=== PATIENT | male | born 1970 | race Caucasian/White ===

== ENCOUNTER 2018-07-04 23:33 | Emergency (ER) | payer SELFPAY ==
[2018-07-05] MEDS ORDERED: Aspirin Chewable 81 MG TAB ONE (00:16)
[2018-07-05 00:30] LABS: #Basophils 0.1 thou/uL (0.0-0.2); #Eosinphils 0.1 thou/uL (0.0-0.7); #Lymphocytes 2.2 thou/uL (1.20-3.40); #Monocytes 0.7 thou/uL (0.11-0.59); #Neutrophils 6.7 thou/uL (1.40-6.50); %Basophils 0.9 % (0.0-1.0); %Eosinophils 1.2 % (0.0-10.0); %Monocytes 6.7 % (0.0-10.0); %Neutrophils 68.3 % (42.0-75.0); Hemoglobin 17.9 g/dL (14.0-18.0); Mean Corpuscular HGB CONC 33.4 g/dL (32.0-36.0); Mean Corpuscular Hemoglobin 28.2 pg (27.0-31.0); Mean Corpuscular Volume 84.4 fL (78.0-98.0); Mean Platelet Volume 8.2 fL (7.4-10.4); Platelet Count 255 thou/uL (130-400); RBC Distribution Width 12.2 % (11.5-14.5); Red Blood Cell (RBC) Count 6.37 mill/uL (4.70-6.10); White Blood Cell (WBC) Count 9.8 thou/uL (4.8-10.8)
[2018-07-05 00:58] LABS: ALT (SGPT) 15 U/L (8-55); AST (SGOT) 20 U/L (5-34); Albumin 4.7 g/dL (3.5-5.0); Alkaline Phosphatase 105 U/L (40-150); Anion Gap 19 mmol/L (10-20); BUN (Urea Nitrogen) 7 mg/dL (8.9-20.6); Bilirubin, Total 0.5 mg/dL (0.2-1.2); CK (CPK) 88 U/L (30-200); Calc. Creatinine Clearance 0 mL/min (70-130); Calcium 10.4 mg/dL (7.8-10.44); Carbon Dioxide 25 mmol/L (22-29); Chloride 99 mmol/L (98-107); Estimated GFR-MDRD 74; Globulin 3.7 g/dL (2.4-3.5); Glucose 159 mg/dL (70-105); Lipase 28 U/L (8-78); Potassium 3.7 mmol/L (3.5-5.1); Protein, Total 8.4 g/dL (6.0-8.3); Sodium 139 mmol/L (136-145)
--- NOTE | 2018-07-05 07:43 | RAD ---
EXAM: Single view of the chest HISTORY: chest pain COMPARISON: None FINDINGS: Single view of the chest shows a normal sized cardiomediastinal silhouette. There is no rafal dence of consolidation, mass, or pleural effusion. The bones are unremarkable. IMPRESSION: No evidence of acute cardiopulmonary disease
--- NOTE | 2018-07-05 07:50 | CT ---
PRELIMINARY REPORT/[facility]/EMERGENCY AFTER HOURS PROCEDURE: EXAM: CT Head Without Contrast EXAM DATE/TIME: 07/05/2018 12:47 AM CLINICAL HISTORY: 48 years old, male; Pain; Headache; Other: HTN; Patient HX: Htn/headache TECHNIQUE: Imaging protocol: Axial computed tomography images of the head/brain without contrast. Radiation opti mization: All CT scans at this facility use at least one of these dose optimization techniques: autom ated exposure control; mA and/or kV adjustment per patient size (includes targeted exams where dose is matched to clinical indication); or iterative reconstruction. COMPARISON: No relevant prior studies available. FINDINGS: Brain: No acute intracranial hemorrhage or mass effect. Suspect old lacunar infarcts in the left basal ganglia/internal capsule region, and supraventricular white matter/centrum semiovale bilaterally. In this relatively young age group, changes related to mu ltiple sclerosis or other demyelinating process might also be considered. No definite acute infarct by CT. Ventricles: Ventricle size is normal for age. Bones/joints: No definite acute skull fracture. Sinuses: Included paranasal sinuses are essentially clear. Mastoid air cells: No significant acute finding. IMPRESSION: 1. No acute intracranial bleed or mass effect. 2. Suspect old lacunar infarcts bilaterally, see above discussion. 3. Other findings discussed above. Thank you for allowing us to participate in the care of your patient. Dictated and Authenticated by: Valentino Wesley MD 07/05/2018 1:31 AM Central Time ([place] & [place]) FINAL REPORT EMERGENCY AFTER HOURS CT BRAIN PERFORMED WITHOUT CONTRAST ENHANCEMENT: Date: 07/05/18 HISTORY: Headache. FINDINGS: The ventricular and cisternal system is within normal limits. There are no signs of intracerebral hem orrhage or extra-axial fluid collections. Old lacunar infarcts are seen in the periventricular white matter. No acute process. Mastoid air cells are clear. Minimal mucosal change is seen within the ethmoid air cells. IMPRESSION: No acute intracranial abnormalities. This report is in agreement with the preliminary report issued by [facility]. POS: SHARITA
== END 2018-07-05 01:33 | disposition short-term general hospital (02) ==
LOC: NAV ERS 23:33
DX: I10 Essential (primary) hypertension (principal); R07.9 Chest pain, unspecified; E11.9 Type 2 diabetes mellitus without complications; K21.9 Gastro-esophageal reflux disease without esophagitis; E78.5 Hyperlipidemia, unspecified; F17.210 Nicotine dependence, cigarettes, uncomplicated; Z79.84 Long term (current) use of oral hypoglycemic drugs; Z79.899 Other long term (current) drug therapy
CPT/HCPCS: 36415; 70450; 71045; 80053; 82550; 83690; 84484; 85025; 93005

== ENCOUNTER 2018-09-30 15:37 | Emergency (ER) | payer SELFPAY | END 2018-09-30 16:20 | disposition home or self-care (01) | LOC: NAV ERS 15:37 | DX: J20.9 Acute bronchitis, unspecified (principal); I10 Essential (primary) hypertension; E11.9 Type 2 diabetes mellitus without complications; K21.9 Gastro-esophageal reflux disease without esophagitis; F17.210 Nicotine dependence, cigarettes, uncomplicated; E78.5 Hyperlipidemia, unspecified; Z79.84 Long term (current) use of oral hypoglycemic drugs; Z79.899 Other long term (current) drug therapy | CPT/HCPCS: 99283 ==

== ENCOUNTER 2018-12-01 08:14 | Emergency (ER) | payer SELFPAY ==
[2018-12-01] MEDS ORDERED: cloNIDine 0.2 MG TAB ONE (09:20)
[2018-12-01] MEDS ORDERED: Sodium Chloride 0.9% 1,000 ML ONE (09:20)
[2018-12-01] MEDS ORDERED: Ketorolac Tromethamine 30 MG/ML VIAL ONE (09:20)
[2018-12-01 09:45] LABS: #Basophils 0.1 thou/uL (0.0-0.2); #Eosinphils 0.2 thou/uL (0.0-0.7); #Lymphocytes 2.7 thou/uL (1.20-3.40); #Monocytes 0.3 thou/uL (0.11-0.59); #Neutrophils 4.4 thou/uL (1.40-6.50); %Basophils 1.2 % (0.0-1.0); %Lymphocytes 35.2 % (21.0-51.0); %Monocytes 4.4 % (0.0-10.0); %Neutrophils 57.1 % (42.0-75.0); Hemoglobin 15.3 g/dL (14.0-18.0); Mean Corpuscular HGB CONC 33.2 g/dL (32.0-36.0); Mean Corpuscular Hemoglobin 27.8 pg (27.0-31.0); Mean Corpuscular Volume 83.7 fL (78.0-98.0); Mean Platelet Volume 8.1 fL (7.4-10.4); Platelet Count 201 thou/uL (130-400); RBC Distribution Width 12.5 % (11.5-14.5); White Blood Cell (WBC) Count 7.7 thou/uL (4.8-10.8)
[2018-12-01 09:49] LABS: ALT (SGPT) 14 U/L (8-55); AST (SGOT) 14 U/L (5-34); Albumin 4.2 g/dL (3.5-5.0); Alkaline Phosphatase 95 U/L (40-150); Anion Gap 15 mmol/L (10-20); BUN (Urea Nitrogen) 12 mg/dL (8.9-20.6); Bilirubin, Total 0.4 mg/dL (0.2-1.2); Calc. Creatinine Clearance 0 mL/min (70-130); Calcium 9.6 mg/dL (7.8-10.44); Carbon Dioxide 22 mmol/L (22-29); Chloride 104 mmol/L (98-107); Estimated GFR-MDRD Greater than 90; Globulin 2.9 g/dL (2.4-3.5); Glucose 134 mg/dL (70-105); Potassium 3.7 mmol/L (3.5-5.1); Protein, Total 7.1 g/dL (6.0-8.3); Sodium 137 mmol/L (136-145)
[2018-12-01 10:21] LABS: Bilirubin Negative (Negative); Blood, Urine Negative (Negative); Clarity Clear (Clear); Glucose, Urine (Dipstick) Negative (Negative); Leukocyte Negative (Negative); Nitrite Negative (Negative); Protein, Urine (Dipstick) Negative (Neg-Trace); Urobilinogen 0.2 mg/dL (Less than 2)
--- NOTE | 2018-12-01 11:43 | CT ---
CT ABDOMEN AND PELVIS WITH IV CONTRAST: Multiplanar reconstruction. Oral contrast was not administered. INDICATION: Abdominal pain. Surgical history includes appendectomy and cholecystectomy. COMPARISON: No comparison. FINDINGS: Lung bases clear. Liver, spleen, and pancreas unremarkable. Adrenal glands normal. Kidneys unremarkable. No hydronep hrosis or urinary calculus. Urinary bladder contracted and not adequately evaluated. Small bowel loops normal caliber. Stool throughout the colon. Aorta normal caliber. No mass, adeno fabien, or free fluid apparent. No acute osseous abnormality. IMPRESSION: No acute finding. POS: OFF
--- NOTE | 2018-12-01 11:55 | CT ---
CT LUMBAR SPINE: DATE: 12/01/2018. PROVIDED CLINICAL HISTORY: Back pain. FINDINGS: No comparisons. Five [id number] lumbar-type vertebral bodies are present. Lumbar alignment delicia ears normal. Vertebral body heights appear preserved. No evidence for fracture. No lytic or blasti c lesions are seen. The visualized extraspinal soft tissues demonstrate no evidence for an acute pro cess. At L3-4, there is disk space height loss and a broad-based disk bulge with left-sided foraminal narro wing. At L4-5, there is a broad-based disk bulge producing bilateral foraminal narrowing. There is potenti al for mild-moderate central canal narrowing. At L5-S1, there is broad-based disk bulge and mild bilateral facet arthritis. There is bilateral for aminal narrowing. IMPRESSION: 1. No evidence for an acute osseous abnormality. 2. Degenerative changes as described. POS: OFF
== END 2018-12-01 11:45 | disposition home or self-care (01) ==
LOC: NAV ERS 08:14
DX: S39.012A Strain of muscle, fascia and tendon of lower back, initial encounter (principal); R21 Rash and other nonspecific skin eruption; E11.9 Type 2 diabetes mellitus without complications; K21.9 Gastro-esophageal reflux disease without esophagitis; E78.5 Hyperlipidemia, unspecified; E78.00 Pure hypercholesterolemia, unspecified; I10 Essential (primary) hypertension; F17.210 Nicotine dependence, cigarettes, uncomplicated; X58.XXXA Exposure to other specified factors, initial encounter
CPT/HCPCS: 72131; 74177; 80053; 81003; 84484; 85025; 93005; 96361; 96374; J1885; J7050

== ENCOUNTER 2021-06-09 17:07 | Emergency (ER) | payer SELFPAY ==
[2021-06-09] MEDS ORDERED: Ondansetron ODT 4 MG TAB ONE (17:45)
[2021-06-09] MEDS ORDERED: Boostrix 0.5 ML (Tdap) VIAL ONE (17:45)
[2021-06-09] MEDS ORDERED: Bacitracin 1 PK ONE (17:53)
== END 2021-06-09 18:18 | disposition home or self-care (01) ==
LOC: NAV ERS 17:07
DX: S06.0X0A Concussion without loss of consciousness, initial encounter (principal); S08.0XXA Avulsion of scalp, initial encounter; E11.9 Type 2 diabetes mellitus without complications; K21.9 Gastro-esophageal reflux disease without esophagitis; E78.5 Hyperlipidemia, unspecified; E78.00 Pure hypercholesterolemia, unspecified; I10 Essential (primary) hypertension; F17.210 Nicotine dependence, cigarettes, uncomplicated; Z23 Encounter for immunization; Z79.84 Long term (current) use of oral hypoglycemic drugs; Z79.899 Other long term (current) drug therapy; Z86.73 Personal history of transient ischemic attack (TIA), and cerebral infarction without residual deficits; W22.8XXA Striking against or struck by other objects, initial encounter
CPT/HCPCS: 70450; 90471; 90715; Q0162